=== PATIENT | male | born 1990 | race Caucasian/White ===

== ENCOUNTER 2020-03-19 03:16 | Emergency (ER) | payer OTHER, SELFPAY ==
[2020-03-19 03:27] VITALS: BP 137/94; PULSE 104; RESP 14; TEMP 36.4; O2SAT 96; BMI 19.2
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
[2020-03-19 03:34] VITALS: BP 116/75; PULSE 104; RESP 16; O2SAT 100
[2020-03-19] MEDS: ondansetron 4 MG Tablet PO (03:36)
[2020-03-19] MEDS: HYDROcodone-acetaminophen 5-325 mg Tablet 1 TAB PO (03:36)
[2020-03-19 04:38] VITALS: BP 119/75; PULSE 88; RESP 16; O2SAT 100
== END 2020-03-19 04:40 | disposition home or self-care (01) ==
PROVIDERS: Emergency Provider Emergency Medicine
DX: S09.8XXA Other specified injuries of head, initial encounter (principal); V49.9XXA Car occupant (driver) (passenger) injured in unspecified traffic accident, initial encounter
CPT/HCPCS: 12345; 70450; 72131; 99281; 99283; Q0162

== ENCOUNTER → 2020-11-04 12:33 | Outpatient (BNVA) | payer BC, SELFPAY | PROVIDERS: Visit Provider Nurse Practitioner Family | DX: Z20.822 Contact with and (suspected) exposure to COVID-19 (principal) | CPT/HCPCS: 87426; 87635 ==

== ENCOUNTER 2021-10-26 17:21 | Emergency (ER) | payer MEDICAID, SELFPAY ==
[2021-10-26 18:06] VITALS: BP 159/88; PULSE 61; RESP 18; TEMP 36.7; O2SAT 98
--- NOTE | 2021-10-26 18:21 | XRR_ITS ---
PROCEDURE INFORMATION: Exam: XR Right Forearm Exam date and time: 10/26/2021 6:27 PM Age: 30 years old Clinical indication: Injury or trauma; Other: Dog bite; Arm, lower; Right TECHNIQUE: Imaging protocol: Radiologic exam of the Right forearm. Views: 2 views. COMPARISON: No relevant prior studies available. FINDINGS: Bones/joints: See Soft tissues finding. Soft tissues: Soft tissue swelling and subcutaneous emphysema over the forearm without radiodense foreign body, fracture or dislocation. XR/XR forearm RT 2V [id number] IMPRESSION: Soft tissue swelling and subcutaneous emphysema over the forearm without radiodense foreign body, fracture or dislocation.
--- NOTE | 2021-10-26 18:21 | XRR_ITS ---
PROCEDURE INFORMATION: Exam: XR Left Forearm Exam date and time: 10/26/2021 6:31 PM Age: 30 years old Clinical indication: Injury or trauma; Other: Dog bite; Arm, lower; Left TECHNIQUE: Imaging protocol: Radiologic exam of the Left forearm. Views: 2 views. COMPARISON: No relevant prior studies available. FINDINGS: Bones/joints: See Soft tissues finding. Soft tissues: Soft tissue swelling and subcutaneous emphysema over the forearm without radiodense foreign body, fracture or dislocation. XR/XR forearm LT 2V [id number] IMPRESSION: Soft tissue swelling and subcutaneous emphysema over the forearm without radiodense foreign body, fracture or dislocation.
[2021-10-26] MEDS: HYDROcodone-acetaminophen 5-325 mg Tablet 1 TAB PO (18:38)
[2021-10-26] MEDS: tetanus-dipt-pertussis 0.5 mL SDV IM (18:39)
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
== END 2021-10-26 19:29 | disposition home or self-care (01) ==
PROVIDERS: Emergency Provider Emergency Medicine; PCP Family Medicine
DX: S51.852A Open bite of left forearm, initial encounter (principal); S51.851A Open bite of right forearm, initial encounter; W54.0XXA Bitten by dog, initial encounter; F17.210 Nicotine dependence, cigarettes, uncomplicated; Z23 Encounter for immunization
CPT/HCPCS: 12004; 73090; 90471; 90715; 99283

== ENCOUNTER 2022-01-19 09:15 | Inpatient (IN) | payer MEDICAID, SELFPAY ==
[2022-01-19 09:44] VITALS: BP 122/72; PULSE 104; RESP 14; TEMP 36.6; O2SAT 97; BMI 19.2
[2022-01-19 10:26] LABS: Basophils % 0.3 %; Eosinophils # 0.1 10^3/uL (0.0-0.8); Eosinophils % 3.2 %; Hematocrit 43.8 % (42.0-52.0); Hemoglobin 14.8 g/dL (11.7-16.6); Lymphocytes % 26.1 %; Mean Corpuscular HGB Conc 33.8 g/dL (30.0-36.0); Mean Corpuscular Hemoglobin 32.1 pg (28.0-34.0); Mean Platelet Volume 8.7 fL (7.4-10.4); Monocytes # 0.4 10^3/uL (0.2-0.9); Monocytes % 11.3 %; Neutrophils # 2.23 10^3/uL (1.8-7.7); Neutrophils % 58.8 %; Nucleated Red Blood Cells % 0 %; Platelet Count 404 10^3/cmm (130-400); Red Blood Count 4.61 10^6/uL (4.1-5.3); White Blood Count 3.8 10^3/uL (4.0-10.0)
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
[2022-01-19 10:46] LABS: Acetaminophen 12.3 ug/mL (10-30); Alanine Aminotransferase 17 U/L (0-41); Albumin Level 4.5 g/dL (3.5-5.2); Alcohol Level 42 mg/dL (0-10); Alkaline Phosphatase 66 U/L (40-130); Anion Gap 15.2 (5-19); Aspartate Amino Transferase 17 U/L (0-40); Blood Urea Nitrogen 14 mg/dL (6-20); Calcium 9.3 mg/dL (8.5-10.5); Carbon Dioxide 22 mmol/L (22-29); Chloride 106 mmol/L (98-107); Creatine Phosphokinase 234 U/L (39-308); Globulin 2.7 g/dL (1.3-4.6); Glomerular Filtration Rate 99.1 mL/min (90-130); Glucose 123 mg/dL (65-115); Osmolality Calculated 290 mOsm/kg (285-295); Potassium 4.2 mmol/L (3.5-5.1); Salicylate < 0.3 mg/dL (3-10); Sodium 139 mmol/L (136-145); Total Bilirubin 0.2 mg/dL (0.15-1.2); Total Protein 7.2 g/dL (6.6-8.7)
[2022-01-19 10:49] LABS: Amphetamines Screen Urine Negative (Negative); Barbiturates Screen Urine Negative (Negative); Benzodiazepines Screen Urine Negative (Negative); Cocaine Screen Urine Negative (Negative); Opiate Screen Urine Negative (Negative); PCP Screen Urine Negative (Negative); THC Screen Urine Positive (Negative)
--- NOTE | 2022-01-19 11:39 | PC.NURSE ---
REPORT GIVEN TO MAYKEL PEACE IN NPU.
[2022-01-19 13:39] VITALS: BMI 19.2
[2022-01-19 14:00] VITALS: BP 97/67; PULSE 108; RESP 16; TEMP 36.5; O2SAT 95
[2022-01-19 20:43] VITALS: BP 112/74; PULSE 89; RESP 18; TEMP 36.7; O2SAT 96
[2022-01-19] MEDS: nicotine 2 mg Gum BUCCAL (21:59)
[2022-01-19] MEDS: gabapentin 100 mg Capsule PO (21:59)
[2022-01-19] MEDS: trazodone 50 mg Tablet 200 MG PO (21:59)
[2022-01-20 06:00] VITALS: BP 112/74; PULSE 69; RESP 17; TEMP 37; O2SAT 98
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
--- NOTE | 2022-01-20 08:49 | PC.OT ---
OT eval attempted, patient asleep at time of contact. Will try again later this date.
[2022-01-20] MEDS: multivitamin therapeutic Tablet 1 TAB PO (09:25)
[2022-01-20] MEDS: folic acid 1 mg Tablet PO (09:25)
[2022-01-20] MEDS: nicotine 2 mg Gum BUCCAL ×2 (09:25→16:24)
[2022-01-20] MEDS: buPROPion XL (24 HR) 300 mg Tablet PO (09:25)
[2022-01-20] MEDS: gabapentin 100 mg Capsule PO ×3 (09:25→20:29)
[2022-01-20] MEDS: thiamine 100 mg Tablet PO (09:25)
[2022-01-20] MEDS: acetaminophen 325 mg Tablet 650 MG PO ×2 (10:14→20:29)
[2022-01-20 14:00] VITALS: BP 116/73; PULSE 73; RESP 20; TEMP 36.8; O2SAT 97
[2022-01-20 19:38] VITALS: BP 115/75; PULSE 93; RESP 17; TEMP 36.7; O2SAT 98
[2022-01-20] MEDS: trazodone 50 mg Tablet 200 MG PO (20:29)
[2022-01-21] MEDS: buPROPion XL (24 HR) 300 mg Tablet PO (05:49)
[2022-01-21 06:00] VITALS: BP 118/68; PULSE 77; RESP 18; TEMP 36.3; O2SAT 99
[2022-01-21] MEDS: thiamine 100 mg Tablet PO (08:51)
[2022-01-21] MEDS: multivitamin therapeutic Tablet 1 TAB PO (08:51)
[2022-01-21] MEDS: folic acid 1 mg Tablet PO (08:51)
[2022-01-21] MEDS: gabapentin 100 mg Capsule PO ×3 (08:51→21:48)
[2022-01-21 14:00] VITALS: BP 112/77; PULSE 87; RESP 20; TEMP 36.7; O2SAT 98
--- NOTE | 2022-01-21 17:01 | W.PM.NPUPNS ---
Subjective NPU Subjective: Patient presented today reporting that he is doing alright. We discussed the fact that prior to his attending our meeting that he was very much downplaying his addiction issues. He reports that why he had a spinal because he knew she would be very clear about her concerns about his addiction. We discussed the fact that for him to be well he would need to be honest about his addiction issues. We also discussed the issue surrounding his aggressive behavior around his child and the likelihood of a childline. Mental Status Exam MSE Comments: This is a slender white male in hospital scrubs with limited grooming and eye contact. Significant scarring on his hands and forearms from reported dog attack. Cooperative with exam in mild distress. Speech was slightly decreased rate and volume. Mood described as indifferent, affect is subdued. Thought process, organized. Thought content: patient denies suicidal or homicidal ideation, no delusions reported or noted and denies any auditory or visual hallucinations. Attention and concentration are intact and memory appeared reliable but none were formally tested. He is alert and oriented times three. Insight is limited. Judgment is impaired. Impulse control is impaired. Vitals/I&O/Wt Last Vital Signs Temp 98.3 F 01/21/22 19:50 Pulse 81 01/21/22 19:50 Resp 18 01/21/22 19:50 BP 108/68 01/21/22 19:50 Pulse Ox 98 01/21/22 19:50 O2 Del Method 01/21/22 19:50 Weight last 48 hrs Weight 58.695 kg Data NPU 01/19/22 10:08 01/19/22 10:08 A&P Assessment and plan (1) Alcohol use disorder, severe, dependence: (2) Major depressive disorder, recurrent severe without psychotic features: (3) Post-traumatic stress disorder, chronic: (4) Nicotine dependence, cigarettes, uncomplicated: Plan This is a 31 year old man with a significant history of trauma, alcohol use and genetic loading for mental health who presents after a recent intoxication reporting he has continuing depression and anxiety and increasing anger recently and endorsing some success on his medications and an openness to continue those medications. 1. Continue current medications 2. Encourage individual, group and milieu therapy 3. Continue q-15 minute check for safety 4. Recommend sober living treatment at the highest level of care to which the patient is willing to commit. Involuntary Hold Information 96 Hour Hold: 96 Hour Involuntary Admission: No Attestations NPU Medical Necessity Statement*: Inpatient hospitalization is medically necessary and the clinically appropriate intervention at this time. We will monitor medications and make changes as indicated. Likely length of stay is 2-4 days. Coding Level of Care Code Acute Senior Research Project Manager for [facility] Fwd Diagnoses Alcohol use disorder, severe, dependence F10.20 Major depressive disorder, recurrent severe without psychotic features F33.2 Post-traumatic stress disorder, chronic F43.12 Nicotine dependence, cigarettes, uncomplicated F17.210
[2022-01-21 19:50] VITALS: BP 108/68; PULSE 81; RESP 18; TEMP 36.8; O2SAT 98
[2022-01-21] MEDS: trazodone 50 mg Tablet 200 MG PO (21:48)
[2022-01-21] MEDS: hyDROXYzine 25 mg Capsule 50 MG PO (21:49)
--- NOTE | 2022-01-21 23:20 | PC.NURSE ---
Patient given ordered Trazadone PO and Vistaril 50 mg PO for sleep and anxiety; Respectively, with good results.
[2022-01-22 06:00] VITALS: BP 128/76; PULSE 86; RESP 18; TEMP 36.4; O2SAT 96
[2022-01-22] MEDS: multivitamin therapeutic Tablet 1 TAB PO (08:45)
[2022-01-22] MEDS: gabapentin 100 mg Capsule PO ×3 (08:45→20:23)
[2022-01-22] MEDS: thiamine 100 mg Tablet PO (08:45)
[2022-01-22] MEDS: buPROPion XL (24 HR) 300 mg Tablet PO (08:45)
[2022-01-22] MEDS: folic acid 1 mg Tablet PO (08:45)
--- NOTE | 2022-01-22 11:06 | W.PM.NPUPNS ---
Subjective NPU Subjective: Patient presents today reporting that he is doing okay. We discussed the treatment team returning tomorrow and us dealing with the issue surrounding the child line. Otherwise reports he is doing little better and denies any withdrawal issues. Reports sleeping better and feeling a little bored. Mental Status Exam MSE Comments: This is a slender white male in hospital scrubs with limited grooming and eye contact. Significant scarring on his hands and forearms from reported dog attack. Cooperative with exam in mild distress. Speech was slightly decreased rate and volume. Mood described as a little better, affect is subdued. Thought process, organized. Thought content: patient denies suicidal or homicidal ideation, no delusions reported or noted and denies any auditory or visual hallucinations. Attention and concentration are intact and memory appeared reliable but none were formally tested. He is alert and oriented times three. Insight is limited. Judgment is impaired. Impulse control is impaired. Vitals/I&O/Wt Last Vital Signs Temp 97.6 F 01/22/22 06:00 Pulse 86 01/22/22 06:00 Resp 18 01/22/22 06:00 BP 128/76 01/22/22 06:00 Pulse Ox 96 01/22/22 06:00 O2 Del Method 01/22/22 06:00 Weight last 48 hrs Weight 58.695 kg Data NPU 01/19/22 10:08 01/19/22 10:08 A&P Assessment and plan (1) Alcohol use disorder, severe, dependence: (2) Major depressive disorder, recurrent severe without psychotic features: (3) Post-traumatic stress disorder, chronic: (4) Nicotine dependence, cigarettes, uncomplicated: Plan This is a 31 year old man with a significant history of trauma, alcohol use and genetic loading for mental health who presents after a recent intoxication reporting he has continuing depression and anxiety and increasing anger recently and endorsing some success on his medications and an openness to continue those medications. 1. Continue current medications 2. Encourage individual, group and milieu therapy 3. Continue q-15 minute check for safety 4. Recommend sober living treatment at the highest level of care to which the patient is willing to commit. Involuntary Hold Information 96 Hour Hold: 96 Hour Involuntary Admission: No Attestations NPU Medical Necessity Statement*: Inpatient hospitalization is medically necessary and the clinically appropriate intervention at this time. We will monitor medications and make changes as indicated. Likely length of stay is 1-3 days. Coding Level of Care Code Acute [employer]razzo Polisher for g Fwd Diagnoses Alcohol use disorder, severe, dependence F10.20 Major depressive disorder, recurrent severe without psychotic features F33.2 Post-traumatic stress disorder, chronic F43.12 Nicotine dependence, cigarettes, uncomplicated F17.210
[2022-01-22 14:00] VITALS: BP 120/69; PULSE 96; RESP 20; TEMP 36.7; O2SAT 98
[2022-01-22] MEDS: hyDROXYzine 25 mg Capsule 50 MG PO (16:16)
[2022-01-22] MEDS: acetaminophen 325 mg Tablet 650 MG PO (16:16)
[2022-01-22 21:22] VITALS: BP 112/73; PULSE 80; RESP 16; TEMP 36.8; O2SAT 97
[2022-01-22] MEDS: trazodone 50 mg Tablet 200 MG PO (22:35)
[2022-01-23 06:00] VITALS: BP 105/68; PULSE 58; RESP 16; TEMP 36.6; O2SAT 97
[2022-01-23] MEDS: acetaminophen 325 mg Tablet 650 MG PO ×2 (08:49→15:08)
[2022-01-23] MEDS: buPROPion XL (24 HR) 300 mg Tablet PO (08:49)
[2022-01-23] MEDS: folic acid 1 mg Tablet PO (08:49)
[2022-01-23] MEDS: thiamine 100 mg Tablet PO (08:49)
[2022-01-23] MEDS: gabapentin 100 mg Capsule PO ×3 (08:49→20:55)
[2022-01-23] MEDS: multivitamin therapeutic Tablet 1 TAB PO (08:49)
[2022-01-23] MEDS: hyDROXYzine 25 mg Capsule 50 MG PO ×2 (08:49→15:08)
[2022-01-23 14:00] VITALS: BP 124/85; PULSE 93; RESP 17; TEMP 36.8; O2SAT 98
--- NOTE | 2022-01-23 18:49 | W.PM.NPUPNS ---
Subjective NPU Subjective: Patient presented today being patient but continuing to show limited investment in his sobriety. He continued to downplay the significance and seriousness of his use and the impact on his circumstances. We discussed also working with his for this childline situation, reporting he is understanding she already did. We are waiting a response and making sure that child protective Services will have no concern with him returning home. Mental Status Exam MSE Comments: This is a slender white male in hospital scrubs with limited grooming and eye contact. Significant scarring on his hands and forearms from reported dog attack. Cooperative with exam in mild distress. Speech was slightly decreased rate and volume. Mood described as a little better, affect is subdued. Thought process, organized. Thought content: patient denies suicidal or homicidal ideation, no delusions reported or noted and denies any auditory or visual hallucinations. Attention and concentration are intact and memory appeared reliable but none were formally tested. He is alert and oriented times three. Insight is limited. Judgment is impaired. Impulse control is impaired. Vitals/I&O/Wt Last Vital Signs Temp 98.0 F 01/23/22 22:00 Pulse 84 01/23/22 22:00 Resp 16 01/23/22 22:00 BP 110/71 01/23/22 22:00 Pulse Ox 99 01/23/22 22:00 O2 Del Method 01/23/22 22:00 Data NPU 01/19/22 10:08 01/19/22 10:08 A&P Assessment and plan (1) Alcohol use disorder, severe, dependence: (2) Major depressive disorder, recurrent severe without psychotic features: (3) Post-traumatic stress disorder, chronic: (4) Nicotine dependence, cigarettes, uncomplicated: Plan This is a 31 year old man with a significant history of trauma, alcohol use and genetic loading for mental health who presents after a recent intoxication reporting he has continuing depression and anxiety and increasing anger recently and endorsing some success on his medications and an openness to continue those medications. 1. Continue current medications 2. Encourage individual, group and milieu therapy 3. Continue q-15 minute check for safety 4. Recommend sober living treatment at the highest level of care to which the patient is willing to commit. 5. Await the response from DFS/CYS. Involuntary Hold Information 96 Hour Hold: 96 Hour Involuntary Admission: No Attestations NPU Medical Necessity Statement*: Inpatient hospitalization is medically necessary and the clinically appropriate intervention at this time. We will monitor medications and make changes as indicated. Likely length of stay is 1-2 days. Coding Level of Care Code Acute Fiberglass Roller for Fatemeh Guerrad Diagnoses Alcohol use disorder, severe, dependence F10.20 Major depressive disorder, recurrent severe without psychotic features F33.2 Post-traumatic stress disorder, chronic F43.12 Nicotine dependence, cigarettes, uncomplicated F17.210
[2022-01-23] MEDS: nicotine 2 mg Gum BUCCAL (20:33)
[2022-01-23] MEDS: trazodone 50 mg Tablet 200 MG PO (20:55)
[2022-01-23 22:00] VITALS: BP 110/71; PULSE 84; RESP 16; TEMP 36.7; O2SAT 99
[2022-01-24 06:00] VITALS: BP 110/70; PULSE 72; RESP 18; TEMP 36.4
[2022-01-24] MEDS: gabapentin 100 mg Capsule PO (08:09)
[2022-01-24] MEDS: thiamine 100 mg Tablet PO (08:09)
[2022-01-24] MEDS: buPROPion XL (24 HR) 300 mg Tablet PO (08:09)
[2022-01-24] MEDS: folic acid 1 mg Tablet PO (08:09)
[2022-01-24] MEDS: multivitamin therapeutic Tablet 1 TAB PO (08:09)
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
[2022-01-24 10:32] VITALS: BP 110/70; PULSE 72; RESP 18; TEMP 36.4; O2SAT 99
[2022-01-24] MEDS: hyDROXYzine 25 mg Capsule 50 MG PO (11:22)
== END 2022-01-24 12:10 | disposition home or self-care (01) | DRG 885 ==
LOC: ER 10:33 → NP 11:13
PROVIDERS: Admitting Provider Psychiatry & Neurology Psychiatry; Emergency Provider Family Medicine; PCP Family Medicine; Visit Provider Psychiatry & Neurology Psychiatry
DX: F33.9 Major depressive disorder, recurrent, unspecified (principal); F10.20 Alcohol dependence, uncomplicated; Z63.0 Problems in relationship with spouse or partner; F41.9 Anxiety disorder, unspecified; F12.90 Cannabis use, unspecified, uncomplicated; F17.210 Nicotine dependence, cigarettes, uncomplicated; F43.12 Post-traumatic stress disorder, chronic; Z81.8 Family history of other mental and behavioral disorders
CPT/HCPCS: 36415; 80053; 80306; 80307; 82550; 85025; 97150; 97165; 99285